=== PATIENT | female | born 1955 | race Caucasian/White ===

== ENCOUNTER 2016-11-25 21:17 | Inpatient (IN) | payer OTHER, MEDICARE ==
[~2016-11-25] VITALS: Ht 160 cm; Wt 70.3 kg
[2016-11-25 21:24] VITALS: BP 126/61; PULSE 98; RESP 16; TEMP 97.9; O2SAT 96
[2016-11-25] MEDS ORDERED: NOVORP2 SQ (21:38)
[2016-11-25] MEDS ORDERED: ZOLP10TA3 PO (21:38)
[2016-11-25] MEDS ORDERED: LANTUS2P SQ (21:38)
[2016-11-25] MEDS ORDERED: LISI20TA PO (21:38)
[2016-11-25] MEDS ORDERED: LETR2.5T PO (21:38)
[2016-11-25] MEDS ORDERED: SERO50TA PO (21:38)
[2016-11-25] MEDS ORDERED: DIAZ10TA PO (21:38)
[2016-11-25] MEDS ORDERED: ATOR1TAB18 PO (21:38)
[2016-11-25] MEDS ORDERED: METF850T PO (21:38)
[2016-11-25] MEDS ORDERED: PROZ40CA PO (21:38)
[2016-11-25] MEDS ORDERED: MAGN250T11 PO (21:38)
[2016-11-25] MEDS ORDERED: VITA100064 PO (21:38)
--- NOTE | 2016-11-25 22:24 | PD ---
HPI Chief Complaint: Suicide Ideation/Attempt Time Seen by Provider: 21:46 Travel History International Travel<30 days: No Contact w/Intl Traveler<30days: No Traveled to known affect area: No History of Present Illness HPI Patient is a 60-year-old female who comes in with her after she was acting strangely tonight. She reports that she took at her 's gun and waived around at her family, including 2 children at the house. She also reports putting a knife to her adult daughters wrist. Her took the gun and the knife away from her. Her says that she has been acting very oddly, she was getting lost, and today she locked herself in the neighbors bathroom. He reports that she took his BB gun and did put it to her head and pulled the trigger, however it was not loaded. He also corroborates the story that she put a knife to her daughter's wrist. She denies any medical complaints at this time. Her says she has been off balance and falling. She last fell a week ago and broke her glasses. She denies any headache, nausea, vomiting, chest pain, shortness of breath. She has a diagnosis of depression and follows with Dr. Paez. [facility] Past Medical History Anxiety: Yes Depression: Yes Cancer: Yes (RIGHT BREAST) High Cholesterol: Yes Chemotherapy: Yes (32 WEEKS IN [id number]) Diabetes: Yes Patient Takes Glucophage: Yes Diverticulitis: Yes GERD: Yes (INDIGESTION) Gout: Yes (?) Headaches: Yes Hypertension: Yes Insomnia: Yes Medical other: Yes (YANG'S PALSY X5) Migraines: Yes Shingles: Yes Sleep Apnea: Yes (NO CPAP USE) Thyroid Disease: Yes (HYPOTHYROIDISM) Triglycerides - High: Yes Tetanus Vaccination: > 5 Years Influenza Vaccination: No ?: Not Menopausal: Yes : 3 Para: 3 Tubal Ligation: Yes Past Surgical History Gynecologic Surgery: Yes (BILATERAL OOPHORECTOMY) Hysterectomy: Yes Mastectomy: Yes (2007 WITH LYMPH NODES) Social History Alcohol Use: No Tobacco Use: No Substance Use: No Allergies-Medications (Allergen,Severity, Reaction): Coded Allergies: Penicillins (Verified Allergy, Severe, SORES, 11/25/16) Reported Meds & Prescriptions Reported Meds & Active Scripts Active Reported Letrozole 2.5 Mg Tab 1 Tab PO DAILY Prozac (Fluoxetine HCl) 40 Mg Cap 60 Mg PO DAILY Lisinopril-Hctz 20-12.5 Mg Tab 1 Tab PO DAILY Lantus Inj (Insulin Glargine) 1,000 Unit/10 Ml Vial 55 Units SQ HS Zolpidem (Zolpidem Tartrate) 10 Mg Tab 10 Mg PO HS PRN Novolin R Inj (Insulin Human Regular) 1,000 Unit/10 Ml Vial 2-10 Units SQ TIDAC PRN IMPORTANT TO EAT A MEAL WITHIN 30-60 MINUTES OF DOSING Review of Systems Except as stated in HPI: all other systems reviewed are Neg General / Constitutional: No: Fever, Chills Eyes: No: Blurred Vision HENT: No: Headaches, Lightheadedness Cardiovascular: No: Chest Pain or Discomfort Respiratory: No: Shortness of Breath Gastrointestinal: No: Nausea, Vomiting Musculoskeletal: No: Myalgias, Edema Skin: No Rash, No Itching Neurologic: No: Weakness, Dizziness Psychiatric: Positive: Depression, Suicidal Ideations, Homicidal Ideation Physical Exam Narrative GENERAL: Awake and alert, in no acute distress. SKIN: Focused skin assessment warm/dry. HEAD: Atraumatic. Normocephalic. EYES: Pupils equal and round. No scleral icterus. Extraocular movements intact. ENT: Mucous membranes pink and moist. NECK: Trachea midline. No JVD. CARDIOVASCULAR: Regular rate and rhythm. No murmur appreciated. RESPIRATORY: No accessory muscle use. Clear to auscultation. Breath sounds equal bilaterally. GASTROINTESTINAL: Abdomen soft, non-tender, nondistended. MUSCULOSKELETAL: No obvious deformities. No clubbing. No cyanosis. No edema. NEUROLOGICAL: Awake and alert. No obvious cranial nerve deficits. Motor grossly within normal limits. Normal speech. PSYCHIATRIC: Appropriate mood and affect; insight and judgment normal. Data Data Last Documented VS Orders Orders Complete Blood Count With Diff (11/25/16 21:46) Comprehensive Metabolic Panel (11/25/16 21:46) Thyroid Stimulating Hormone (11/25/16 21:46) Urinalysis - C+S If Indicated (11/25/16 21:46) Psych Screen (11/25/16 21:46) Drug Screen, Random Urine (11/25/16 21:46) Alcohol (Ethanol) (11/25/16 21:46) Salicylates (Aspirin) (11/25/16 21:46) Tylenol (Acetaminophen) (11/25/16 21:46) Ct Brain W/O Iv Contrast(Rout) (11/25/16 ) Ceftriaxone Inj (Rocephin Inj) (11/25/16 22:45) Urine Culture (11/25/16 21:55) Sodium Chlor 0.9% 1000 Ml Inj (Ns 1000 M (11/25/16 23:00) Insulin Human Regular Inj (Novolin R Inj (11/25/16 23:00) Diet Regular Basic (11/26/16 Breakfast) Blood Glucose Goal (Criteria) (11/26/16 12:12) Hypoglycemia 70 Mg/Dl Or < (11/26/16 12:12) Notify Dr: Other (11/26/16 12:12) Dextrose 50% In [place]vin (Vial) Inj (D50w (Vi (11/26/16 12:15) Glucagon Inj (Glucagon Inj) (11/26/16 12:15) Insulin Human Reg Supp Scale (Novolin R (11/26/16 16:00) Insulin Human Regular Inj (Novolin R Inj (11/26/16 13:45) Admit Order (Ed Use Only) (11/26/16 15:54) Labs Laboratory Tests Test 11/25/16 21:55 11/25/16 22:30 Urine Collection Type VOIDED Urine Color STRAW Urine Turbidity SLIGHT Urine pH 5.5 Urine Specific [place] 1.020 Urine Protein NEG mg/dL Urine Glucose (UA) 1000 OR GREATER mg/dL Urine Ketones NEG mg/dL Urine Occult Blood TRACE Urine Nitrite POS Urine Bilirubin NEG Urine Leukocyte Esterase MOD Urine WBC INNUM /hpf Urine WBC Clumps MOD Urine Squamous Epithelial Cells >8 /hpf Urine Bacteria MANY /hpf Microscopic Urinalysis Comment CULTURE INDICATED Urine Opiates Screen NEG Urine Barbiturates Screen NEG Urine Amphetamines Screen NEG Urine Benzodiazepines Screen POS Urine Cocaine Screen NEG Urine Cannabinoids Screen NEG White Blood Count 13.3 TH/MM3 Red Blood Count 4.37 MIL/MM3 Hemoglobin 12.4 GM/DL Hematocrit 36.7 % Mean Corpuscular Volume 83.8 FL Mean Corpuscular Hemoglobin 28.3 PG Mean Corpuscular Hemoglobin Concent 33.8 % Red Cell Distribution Width 11.9 % Platelet Count 384 TH/MM3 Mean Platelet Volume 7.7 FL Neutrophils (%) (Auto) 75.1 % Lymphocytes (%) (Auto) 16.7 % Monocytes (%) (Auto) 4.8 % Eosinophils (%) (Auto) 0.6 % Basophils (%) (Auto) 2.8 % Neutrophils # (Auto) 10.0 TH/MM3 Lymphocytes # (Auto) 2.2 TH/MM3 Monocytes # (Auto) 0.6 TH/MM3 Eosinophils # (Auto) 0.1 TH/MM3 Basophils # (Auto) 0.4 TH/MM3 CBC Comment DIFF FINAL Differential Comment Blood Urea Nitrogen 23 MG/DL Creatinine 1.50 MG/DL Random Glucose 393 MG/DL Total Protein 7.6 GM/DL Albumin 3.2 GM/DL Calcium Level 9.4 MG/DL Alkaline Phosphatase 159 U/L Aspartate Amino Transf (AST/SGOT) 10 U/L Alanine Aminotransferase (ALT/SGPT) 20 U/L Total Bilirubin 0.2 MG/DL Sodium Level 129 MEQ/L Potassium Level 3.6 MEQ/L Chloride Level 94 MEQ/L Carbon Dioxide Level 28.1 MEQ/L Anion Gap 7 MEQ/L Estimat Glomerular Filtration Rate 35 ML/MIN Thyroid Stimulating Hormone 3rd Gen 2.150 uIU/ML Salicylates Level LESS THAN 1.7 MG/DL Acetaminophen Level LESS THAN 2.0 MCG/ML Ethyl Alcohol Level LESS THAN 3 MG/DL MDM Medical Decision Making Medical Screen Exam Complete: Yes Emergency Medical Condition: Yes Medical Record Reviewed: Yes Differential Diagnosis Psychosis versus intoxication versus electrolyte abnormality versus intracranial pathology Narrative Course Patient is a 60-year-old female comes in with her after bizarre behavior today. She admits to wait and get around putting a knife to her daughter's wrist. She has no medical complaints at this time. Patient placed under a Myles act. Labs show evidence of a UTI. She is given a dose of Rocephin. Blood sugar is a little elevated at 393, given IV fluids as well as insulin. Patient will be medically cleared to be seen by psychiatry. She will require continued antibiotics for her urinary tract infection, this can be oral. Patient will be transferred to [facility] for psychiatric evaluation and continued management. Diagnosis Primary Impression: Psychosis Qualified Codes: F29 - Unspecified psychosis not due to a substance or known physiological condition Additional Impression: Urinary tract infection Qualified Codes: N30.00 - Acute cystitis without hematuria Scripts Quetiapine (Quetiapine) 25 Mg Tab 50 MG PO HS for health, #30 TAB 0 Refills Prov: Tanner Abraham MD 12/01/16 Metformin (Glucophage) 850 Mg Tab 850 MG PO BIDPC for health, #60 TAB 0 Refills Prov: Tanner Abraham MD 12/01/16 Magnesium Oxide (Magnesium Oxide) 400 Mg Tab 400 MG PO HS for health, #30 TAB 0 Refills Prov: Tanner Abraham MD 12/01/16 Insulin Detemir Inj (Levemir Inj) 1,000 unit/ 10 ML Vial 45 UNITS SQ HS for health, #2 VIAL 0 Refills Do not mix with any other Insulin. Prov: Tanner Abraham MD 12/01/16 Doxycycline Hyclate (Doxycycline Hyclate) 100 Mg Cap 100 MG PO Q12H for health, #20 CAP 0 Refills Prov: Tanner Abraham MD 12/01/16 Diazepam (Valium) 10 Mg Tab 10 MG PO TID Y for ANXIETY, #30 TAB 0 Refills Prov: Tanner Abraham MD 12/01/16 Cholecalciferol (D 1000) 1,000 Unit Tab 1000 UNITS PO BID for health, #60 TAB 0 Refills Prov: Tanner Abraham MD 12/01/16 Atorvastatin (Atorvastatin) 80 Mg Tab 80 MG PO HS for health, #30 TAB 0 Refills Prov: Tanner Abraham MD 12/01/16 Condition: Katarina Rosenberg MD Nov 25, 2016 22:24
[2016-11-25 22:29] LABS: BLOOD, URINE TRACE (NEG); GLUCOSE,URINE 1000 OR GREATER mg/dL (NEG); KETONE, URINE NEG (NEG); NITRITE,URINE POS (NEG); PH, URINE 5.5 (5.0-8.5)
[2016-11-25 22:43] LABS: BASOPHIL # 0.4 TH/MM3 (0-0.2); BASOPHIL % 2.8 % (0.0-2.0); EOSINOPHIL # 0.1 TH/MM3 (0-0.4); EOSINOPHIL % 0.6 % (0.0-4.0); HEMATOCRIT 36.7 % (35.0-46.0); HEMO FLAGS DIFF FINAL; LYMPH % 16.7 % (9.0-44.0); LYMPHOCYTE # 2.2 TH/MM3 (1.0-4.8); MEAN CELL VOLUME 83.8 FL (80.0-100.0); MEAN CORPUSCULAR HEMOGLOBIN 28.3 PG (27.0-34.0); MEAN CORPUSCULAR HGB CONC 33.8 % (32.0-36.0); MONO % 4.8 % (0.0-8.0); NEUT % 75.1 % (16.0-70.0); PLATELET COUNT 384 TH/MM3 (150-450); RED BLOOD COUNT 4.37 MIL/MM3 (4.00-5.30); RED CELL DISTRIBUTION WIDTH 11.9 % (11.6-17.2); WHITE BLOOD COUNT 13.3 TH/MM3 (4.0-11.0)
[2016-11-25 22:45] LABS: METHOD OF COLLECTION VOIDED; SQUAMOUS EPITHELIAL CELL URINE >8 /hpf (0-5); URINE COLOR STRAW (YELLW/STRAW); WBC, URINE INNUM /hpf (0-5)
[2016-11-25] MEDS ORDERED: cefTRIAXone INJ 1,000 MG in SODIUM CHLORIDE 0.9% INJ 100 ML IV ONE (22:45)
[2016-11-25 22:46] LABS: BACTERIA, URINE MANY /hpf; COMMENT (UR) CULTURE INDICATED; CULTURE IF INDICATED CULTURE INDICATED
--- NOTE | 2016-11-25 22:46 | RADRPT ---
EXAM DATE/TIME: 11/25/2016 22:02 [place] COMPARISON: No previous studies available for comparison. INDICATIONS : Altered mental status. RADIATION DOSE: 59.09 CTDIvol (mGy) MEDICAL HISTORY : Diabetes mellitus type 2. Hypertension. SURGICAL HISTORY : None. ENCOUNTER: Initial ACUITY: 1 day PAIN SCALE: 0/10 LOCATION: cranial TECHNIQUE: Multiple contiguous axial images were obtained of the head. Using automated exposure control and adj ustment of the mA and/or kV according to patient size, radiation dose was kept as low as reasonably a chievable to obtain optimal diagnostic quality images. DICOM format image data is available electro nically for review and comparison. FINDINGS: CEREBRUM: There is mild atrophy. Ventricles are prominent but within the range of expected given the degree of atrophy present. No evidence of midline shift, mass lesion, hemorrhage or acute infarction. No extr a-axial fluid collections are seen. POSTERIOR FOSSA: The cerebellum and brainstem are intact. The 4th ventricle is midline. The cerebellopontine angle i s unremarkable. EXTRACRANIAL: The visualized portion of the orbits is intact. SKULL: The calvaria is intact. No evidence of skull fracture. CONCLUSION: No acute intracranial abnormality is identified. Tanner Fish MD on November 25, 2016 at 22:43 Board Certified Radiologist. This report was verified electronically.
[2016-11-25 22:51] LABS: CHLORIDE 94 MEQ/L (98-107); POTASSIUM 3.6 MEQ/L (3.5-5.1); SODIUM (NA) 129 MEQ/L (136-145)
[2016-11-25 22:54] LABS: ANION GAP 7 MEQ/L (5-15); BICARBONATE 28.1 MEQ/L (21.0-32.0)
[2016-11-25 22:55] LABS: BLOOD UREA NITROGEN 23 MG/DL (7-18)
[2016-11-25 22:57] LABS: ALT (GPT) 20 U/L (10-53); AST (GOT) 10 U/L (15-37)
[2016-11-25 22:58] LABS: GLOMERULAR FILTRATION RATE 35 ML/MIN (>89)
[2016-11-25 22:59] LABS: TOTAL BILIRUBIN ADULT 0.2 MG/DL (0.2-1.0)
[2016-11-25 23:00] LABS: ALKALINE PHOSPHATASE 159 U/L (45-117)
[2016-11-25] MEDS ORDERED: INSULIN HUMAN REGULAR 1,000 UNITS/10 ML VIAL SQ ONE (23:00)
[2016-11-25] MEDS ORDERED: SODIUM CHLOR 0.9% 1000 ML INJ 1,000 ML IV ONE (23:00)
[2016-11-25 23:08] LABS: ALCOHOL LESS THAN 3 MG/DL (0-5)
[2016-11-26 01:04] VITALS: BP 111/54
[2016-11-26 01:21] LABS: ACETAMINOPHEN LESS THAN 2.0 MCG/ML (10.0-30.0)
[2016-11-26 01:31] VITALS: BP 135/74; PULSE 85; RESP 16; TEMP 98.3; O2SAT 97
[2016-11-26 06:50] VITALS: BP 125/64; PULSE 66; RESP 16; O2SAT 96
[2016-11-26 07:34] VITALS: BP 130/75; PULSE 63; RESP 15; TEMP 97.8; O2SAT 98
[2016-11-26] MEDS ORDERED: DEXTROSE 50% IN WATER 50 ML VIAL(D50) IV PRN (12:15)
[2016-11-26] MEDS ORDERED: GLUCAGON 1 MG/ML VIAL OTHER PRN (12:15)
[2016-11-26] MEDS ORDERED: INSULIN HUMAN REGULAR 1,000 UNITS/10 ML VIAL SQ ONE (13:45)
[2016-11-26] MEDS ORDERED: NON-FORMULARY DRUG (Letrozole 1 TAB) PO SCH (16:00)
[2016-11-26] MEDS ORDERED: NON-FORMULARY DRUG (Lisinopril-Hctz 1 TAB) PO SCH (16:00)
[2016-11-26] MEDS ORDERED: ALUMINUM/MAGNESIUM/SIMETH 30 ML CUP PO PRN (16:00)
[2016-11-26] MEDS ORDERED: LORazepam 2 MG/ML VIAL IM PRN ×2 (16:00)
[2016-11-26] MEDS ORDERED: MAGNESIUM HYDROXIDE SUSP 30 ML CUP PO PRN (16:00)
[2016-11-26] MEDS ORDERED: LORazepam 0.5 MG TAB PO PRN (16:00)
--- NOTE | 2016-11-26 16:14 | HHI.HP ---
Provisional Diagnosis Admission Date Nov 26, 2016 at 15:56 [place]. Adjustment disorder with mixed disturbance of emotion and conduct. Certification of Person's Competence To Provide Express and Informed Consent I have personally examined Sharona Gusman , a person being served at [facility] on, Nov 26, 2016 16:04. Express and informed consent means consent voluntarily given in writing, by a competent person, after sufficient explanation and disclosure of the subject matter involved to enable the person to make a knowing and willful decision without any element of force, fraud, deceit, duress, or other form of constraint or coercion. This person is 18 years of age or older, is not now known to be incompetent to consent to treatment with a guardian advocate, and does not have a health care surrogate or proxy currently making medical treatment decisions. I have found this person to be one of the following: [x] Competent to provide express and informed consent, as defined above, for voluntary admission to this facility and is competent to provide express and informed consent for treatment. He/she has the consistent capacity to make well reasoned, willful, and knowing decisions concerning his or her medical or mental health treatment. The person fully and consistently understands the purpose of the admission for examination/placement and is fully capable of personally exercising all rights assured [place] [] Incompetent to provide express and informed consent to voluntary admission, and this is incompetent to provide express and informed consent to treatment. The person must be transferred to involuntary status and a petition for a guardian advocate filed with the Circuit Court. [] Refusing to provide express and informed consent to voluntary admission but is competent to provide express and informed consent for treatment. The person must be discharged or transferred to involuntary status. Form shall be completed within 24 hours of a person's arrival at the receiving facility and filed in the clinical record of each person: 1. Admitted on a voluntary basis 2. Permitted to provide express and informed consent to his/her own treatment 3. Allowed to transfer from involuntary to voluntary status 4. Prior to permitting a person to consent to his or her own treatment after having been previously found incompetent to consent to treatment. History of Present Illness Capacity: Has Capacity HPI This is a 60-year-old female brought in under a Myles act for bizarre and inappropriate behavior. Patient reportedly took out her 's gun and waved it around at her family. The Myles act also states that she put a knife to her adult daughters wrist. The reports the patient has been very bizarre lately and locked herself in the bathroom at a neighbors house. The also reports the patient took a BB gun, held it to her own head and pulled the trigger. The patient admits to these behaviors but provides an implausible or inadequate explanation as to why she did these things. She does state that her adult daughter has been living in her home for the last 4 years. In addition to the adult daughter, there is the son-in-law and 2 young children. The patient states she wants them to leave her home because they are loud, noisy and inappropriate. Patient complains about the son-in-law, who she states does not work. The patient further remarks that her does not attempt to make them leave. The patient provides an inadequate response as to why she put a knife to her daughters wrist, waved gun around her grandchildren or locked herself in the bathroom. She does state that she was trying to make appointments. Review of Systems Except as stated in HPI: all other systems reviewed are Neg Past Psych History Psychological trauma history Denied Violence risk - others (6 mos) High Violence risk - self (6 mos) High Substance Abuse History Drugs/Alcohol past 12 months Denied Past Family Social History Coded Allergies: Penicillins (Verified Allergy, Severe, SORES, 11/25/16) Reported Medications Letrozole (Letrozole) 2.5 Mg Tab, 1 TAB PO DAILY 11/25/16 Metformin (Metformin) 850 Mg Tab, 850 MG PO BIDPC for Blood Sugar Management, TAB 0 Refills With meals 11/25/16 Fluoxetine (Prozac) 40 Mg Cap, 60 MG PO DAILY, #30 CAP 0 Refills 11/25/16 Diazepam (Diazepam) 10 Mg Tab, 10 MG PO TID Y for ANXIETY, TAB 0 Refills 11/25/16 Lisinopril-Hctz (Lisinopril-Hctz) 20-12.5 Mg Tab, 1 TAB PO DAILY for Blood Pressure Management, #30 TAB 0 Refills 11/25/16 Quetiapine (Seroquel) 50 Mg Tab, 50 MG PO HS for Insomnia, #30 TAB 0 Refills 11/25/16 Insulin Glargine Inj (Lantus Inj) 1,000 Unit/10 Ml Vial, 55 UNITS SQ HS for Blood Sugar Management, VIAL 0 Refills 11/25/16 Atorvastatin (Atorvastatin) 80 Mg Tab, 80 MG PO HS for Cholesterol Management, # 30 TAB 0 Refills 11/25/16 Zolpidem (Zolpidem) 10 Mg Tab, 10 MG PO HS Y for INSOMNIA, TAB 0 Refills 11/25/16 Cholecalciferol (Vitamin D3) 1,000 Unit Tab, 1000 UNITS PO BID for Nutritional Supplement, #1 BOTTLE 0 Refills 11/25/16 Magnesium Oxide (Magnesium Oxide) 250 Mg Tab, 500 MG PO HS, TAB 0 Refills 11/25/16 Insulin Human Regular Inj (Novolin R Inj) 1,000 Unit/10 Ml Vial, 2-10 UNITS SQ TIDAC Y for Blood Sugar Management, #10 ML 0 Refills IMPORTANT TO EAT A MEAL WITHIN 30-60 MINUTES OF DOSING 11/25/16 Current Medications Medications (Trade) Dose Ordered Sig/Brain Route Start Time Stop Time Status Last Admin (D50w (Vial) Inj) 50 ml UNSCH PRN IV 11/26/16 12:15 (Glucagon Inj) 1 mg UNSCH PRN OTHER 11/26/16 12:15 (NovoLIN R SUPPLEMENTAL SCALE) 1 ACHS SLIDING SCALE SQ 11/26/16 16:00 (Ativan) 1 mg Q6H PRN PO 11/26/16 16:00 UNV (Ativan Inj) 1 mg Q6H PRN IM 11/26/16 16:00 UNV (Ativan) 0.5 mg Q12H PRN PO 11/26/16 16:00 UNV (Ativan Inj) 0.5 mg Q12H PRN IM 11/26/16 16:00 UNV (Tylenol) 650 mg Q4H PRN PO 11/26/16 16:00 UNV (Milk Of Magnesia Liq) 30 ml DAILY PRN PO 11/26/16 16:00 UNV (Mag-Al Plus Susp Liq) 30 ml Q6H PRN PO 11/26/16 16:00 UNV (Lipitor) 80 mg HS PO 11/26/16 21:00 UNV (Vitamin D3) 1,000 units BID PO 11/26/16 21:00 UNV (Valium) 10 mg TID PRN PO 11/26/16 16:00 UNV (Lantus Inj) 55 units HS SQ 11/26/16 21:00 UNV (Glucophage) 850 mg BIDPC PO 11/26/16 18:00 UNV Non-Formulary Medication 1 tab DAILY PO 11/26/16 16:00 UNV Non-Formulary Medication 1 tab DAILY PO 11/26/16 16:00 UNV Non-Formulary Medication 500 mg HS PO 11/26/16 21:00 UNV Non-Formulary Medication 50 mg HS PO 11/26/16 21:00 UNV Family History Positive for mood and anxiety symptoms. Social History Lives with her of many years. Patient does not work. Patient denies drug and alcohol abuse that states her and her daughter and son-in-law all smoke marijuana frequently around her grandchildren. Patient's Strengths (min. 2) Verbal and has access to healthcare. Physical Exam GENERAL: SKIN: Warm and dry. HEAD: Normocephalic. EYES: No scleral icterus. No injection or drainage. NECK: Supple, trachea midline. No JVD or lymphadenopathy. CARDIOVASCULAR: Regular rate and rhythm without murmurs, gallops, or rubs. RESPIRATORY: Breath sounds equal bilaterally. No accessory muscle use. GASTROINTESTINAL: Abdomen soft, non-tender, nondistended. MUSCULOSKELETAL: No cyanosis, or edema. BACK: Nontender without obvious deformity. No CVA tenderness. Vital Signs Vital Signs Date Time Temp Pulse Resp B/P (MAP) Pulse Ox O2 Delivery O2 Flow Rate FiO2 11/26/16 07:34 97.8 63 15 130/75 (93) 98 Room Air I/O 11/26/16 11/26/16 11/26/16 07:59 15:59 23:59 Intake Total 1000 ml 240 ml Balance 1000 ml 240 ml Lab Results Test 11/25/16 21:55 11/25/16 22:30 Urine Collection Type VOIDED Urine Color STRAW Urine Turbidity SLIGHT Urine pH 5.5 Urine Specific [place] 1.020 Urine Protein NEG mg/dL Urine Glucose (UA) 1000 OR GREATER mg/dL Urine Ketones NEG mg/dL Urine Occult Blood TRACE Urine Nitrite POS Urine Bilirubin NEG Urine Leukocyte Esterase MOD Urine WBC INNUM /hpf Urine WBC Clumps MOD Urine Squamous Epithelial Cells >8 /hpf Urine Bacteria MANY /hpf Microscopic Urinalysis Comment CULTURE INDICATED Urine Opiates Screen NEG Urine Barbiturates Screen NEG Urine Amphetamines Screen NEG Urine Benzodiazepines Screen POS Urine Cocaine Screen NEG Urine Cannabinoids Screen NEG White Blood Count 13.3 TH/MM3 Red Blood Count 4.37 MIL/MM3 Hemoglobin 12.4 GM/DL Hematocrit 36.7 % Mean Corpuscular Volume 83.8 FL Mean Corpuscular Hemoglobin 28.3 PG Mean Corpuscular Hemoglobin Concent 33.8 % Red Cell Distribution Width 11.9 % Platelet Count 384 TH/MM3 Mean Platelet Volume 7.7 FL Neutrophils (%) (Auto) 75.1 % Lymphocytes (%) (Auto) 16.7 % Monocytes (%) (Auto) 4.8 % Eosinophils (%) (Auto) 0.6 % Basophils (%) (Auto) 2.8 % Neutrophils # (Auto) 10.0 TH/MM3 Lymphocytes # (Auto) 2.2 TH/MM3 Monocytes # (Auto) 0.6 TH/MM3 Eosinophils # (Auto) 0.1 TH/MM3 Basophils # (Auto) 0.4 TH/MM3 CBC Comment DIFF FINAL Differential Comment Blood Urea Nitrogen 23 MG/DL Creatinine 1.50 MG/DL Random Glucose 393 MG/DL Total Protein 7.6 GM/DL Albumin 3.2 GM/DL Calcium Level 9.4 MG/DL Alkaline Phosphatase 159 U/L Aspartate Amino Transf (AST/SGOT) 10 U/L Alanine Aminotransferase (ALT/SGPT) 20 U/L Total Bilirubin 0.2 MG/DL Sodium Level 129 MEQ/L Potassium Level 3.6 MEQ/L Chloride Level 94 MEQ/L Carbon Dioxide Level 28.1 MEQ/L Anion Gap 7 MEQ/L Estimat Glomerular Filtration Rate 35 ML/MIN Thyroid Stimulating Hormone 3rd Gen 2.150 uIU/ML Salicylates Level LESS THAN 1.7 MG/DL Acetaminophen Level LESS THAN 2.0 MCG/ML Ethyl Alcohol Level LESS THAN 3 MG/DL Date/Time Source Procedure Growth Status 11/25/16 21:55 Urine Random Urine Urine Culture - Preliminary Gram Negative [place] Resulted Mental Status Examination Speech: Unremarkable Orientation: x3 Memory: Unremarkable Thought Process: Circumstantial, Tangential Thought Content: Bizarre thinking Hallucination Type: None Attention and Concentration: Good Suicidal Ideation: Yes Previous Suicide Attempts: No Homicidal Ideation: Yes Previous Homicide Attempts: No Insight: Fair Judgment: Unrealistic Affect: Anxious, Sad Mood: Sad, Anxious Motor Activity: Normal gait Assessment & Plan Problem List: (1) Adjustment disorder with mixed disturbance of emotions and conduct ICD Codes: F43.25 - Adjustment disorder with mixed disturbance of emotions and conduct Assessment & Plan Estimated LOS: days. This is a 60-year-old female being admitted under a Myles act for dangerous behavior to self and others. By waving her 's gun in front of her family members and grandchildren, she is certainly engaged in dangerous behavior. By holding a BB gun to her head and pulling the trigger , she is obviously engaging in behavior dangerous to herself. Finally, by placing a knife to her daughter's wrist, she is endangering the welfare of her daughter. For these reasons the patient is being admitted for evaluation and treatment. The patient will undergo a number of tests including a CBC and metabolic profile. This is to determine if a infectious or metabolic process is causing or contributing to the patient's bizarre behavior. It is noted the patient has multiple medical problems including diabetes and therefore the physical medicine physician is being consulted to evaluate and treat. The patient is also having vitamin B-12, vitamin D and thyroid stimulating hormone levels checked to determine if deficiencies in these areas are causing or contributing to her bizarre behavior. We will obtain an EKG to determine the patient's cardiac conduction status in order to protect her against possible adverse effects from psychotropic medication use. This physician spoke with the patient 's nurse regarding her recent bizarre behavior, which is confirmed by her . Case management is also being involved to obtain further information from family members and assist with disposition planning. Rafael Orellana MD Nov 26, 2016 16:14
[2016-11-26 16:17] VITALS: BP 134/83; PULSE 70; RESP 15; TEMP 98; O2SAT 98
[2016-11-26] MEDS: INSULIN NovoLIN REGULAR SUPPLEMENTAL SCALE SQ SCH ×2 (16:48→20:47)
[2016-11-26 17:25] VITALS: BP 132/77; PULSE 78; RESP 16; TEMP 97.8
[2016-11-26] MEDS ORDERED: metFORMIN HCL 850 MG TAB PO SCH (18:00)
[2016-11-26] MEDS: CHOLECALCIFEROL (VIT D3) 1000 UNIT TAB PO SCH (20:34)
[2016-11-26] MEDS: ATORVASTATIN 80 MG TAB PO SCH (20:34)
[2016-11-26] MEDS: INSULIN DETEMIR 100 UNITS/ML VIAL SQ SCH (20:44)
[2016-11-26] MEDS: LORazepam 1 MG TAB PO PRN (20:48)
[2016-11-26] MEDS ORDERED: NON-FORMULARY DRUG (Magnesium Oxide 500 MG) PO SCH (21:00)
[2016-11-26] MEDS ORDERED: NON-FORMULARY DRUG (Quetiapine (Seroquel) 50 MG) PO SCH (21:00)
[2016-11-26] MEDS ORDERED: INSULIN GLARGINE 1,000 UNITS/10 ML VIAL SQ SCH (21:00)
[2016-11-26] MEDS ORDERED: PILL SPLITTER OTHER PRN (21:30)
[2016-11-26] MEDS: ACETAMINOPHEN 325 MG TAB PO PRN (21:43)
[2016-11-26] MEDS: DIAZEPAM 10 MG TAB PO PRN (23:16)
[2016-11-27] MEDS: ACETAMINOPHEN 325 MG TAB PO PRN (04:54)
[2016-11-27 06:03] VITALS: BP 178/85; PULSE 78; RESP 17; TEMP 97.9; O2SAT 98
[2016-11-27] MEDS: INSULIN NovoLIN REGULAR SUPPLEMENTAL SCALE SQ SCH ×4 (06:29→21:00)
[2016-11-27] MEDS: CHOLECALCIFEROL (VIT D3) 1000 UNIT TAB PO SCH ×2 (09:00→21:22)
[2016-11-27] MEDS: HYDROCHLOROTHIAZIDE 25 MG TAB PO SCH (09:00)
[2016-11-27] MEDS ORDERED: PT:LETROZOLE 2.5 MG PO SCH (09:00)
[2016-11-27] MEDS: LISINOPRIL 20 MG TAB PO SCH (09:00)
[2016-11-27 09:40] LABS: AUTOMATED NEUTROPHIL # 9.1 TH/MM3 (1.8-7.7); BASOPHIL # 0.1 TH/MM3 (0-0.2); BASOPHIL % 0.5 % (0.0-2.0); EOSINOPHIL # 0.1 TH/MM3 (0-0.4); EOSINOPHIL % 1.2 % (0.0-4.0); HEMATOCRIT 38.4 % (35.0-46.0); HEMO FLAGS DIFF FINAL; LYMPH % 18.7 % (9.0-44.0); LYMPHOCYTE # 2.3 TH/MM3 (1.0-4.8); MEAN CORPUSCULAR HEMOGLOBIN 28.5 PG (27.0-34.0); MEAN CORPUSCULAR HGB CONC 33.5 % (32.0-36.0); MONO % 4.6 % (0.0-8.0); PLATELET COUNT 403 TH/MM3 (150-450); RED BLOOD COUNT 4.52 MIL/MM3 (4.00-5.30); RED CELL DISTRIBUTION WIDTH 13.3 % (11.6-17.2); WHITE BLOOD COUNT 12.1 TH/MM3 (4.0-11.0)
[2016-11-27 10:06] LABS: ANION GAP 7 MEQ/L (5-15); AST (GOT) 13 U/L (15-37); BLOOD UREA NITROGEN 12 MG/DL (7-18); CHLORIDE 104 MEQ/L (98-107); GLOMERULAR FILTRATION RATE 54 ML/MIN (>89); POTASSIUM 3.4 MEQ/L (3.5-5.1); SODIUM (NA) 139 MEQ/L (136-145)
[2016-11-27 10:36] LABS: ALKALINE PHOSPHATASE 151 U/L (45-117); ALT (GPT) 22 U/L (10-53); HDL CHOLESTEROL 35.3 MG/DL (40.0-60.0); LDL CHOLESTEROL 167 MG/DL (0-99); TOTAL BILIRUBIN ADULT 0.3 MG/DL (0.2-1.0)
[2016-11-27] MEDS ORDERED: ALUMINUM/MAGNESIUM/SIMETH 30 ML CUP PO PRN (11:00)
[2016-11-27] MEDS ORDERED: hydrOXYzine HCL 50 MG TAB PO PRN (11:00)
[2016-11-27] MEDS ORDERED: MAGNESIUM HYDROXIDE SUSP 30 ML CUP PO PRN (11:00)
[2016-11-27] MEDS ORDERED: diphenhydrAMINE HCL 50 MG CAP PO PRN (11:00)
--- NOTE | 2016-11-27 11:13 | EKG ---
Date Performed: 11/27/2016 Time Performed: 09:13:01 PTAGE: 60 years EKG: Sinus rhythm ST/T-WAVE ABNORMALITY, CONSIDER ANTERIOR ISCHEMIA ABNORMAL ECG NO PREVIOUS TRACING DOCTOR: Gene Hogue Interpretating Date/Time 11/27/2016 11:11:25
[2016-11-27] MEDS ORDERED: POTASSIUM CHLORIDE 25 MEQ EFFERVESCENT TAB PO ONE (11:15)
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
[2016-11-27 12:15] LABS: HEMOGLOBIN A1a 1.2 %; HEMOGLOBIN A1b 1.3 %; HEMOGLOBIN Ao 73.5 %; HEMOGLOBIN F 1.9 %; HEMOGLOBIN P3 4.5 %
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
[2016-11-27] MEDS: SULFAMETHOXAZOLE-TRIMETHOPRIM DS 800-160 MG TAB PO SCH ×2 (13:44→21:21)
[2016-11-27 14:53] LABS: BLOOD GAS BASE EXCESS 1.1 mmol/L (-2-2); BLOOD GAS CARBOXYHEMOGLOBIN 1.4 % (0-4); BLOOD GAS HCO3 26 mmol/L (22-26); BLOOD GAS O2 HGB SATURATION 94 % (90-100); BLOOD GAS OXYGEN CONTENT 20.1 Vol % (12.0-20.0); BLOOD GAS PCO2 48 mmHg (38-42); BLOOD GAS PO2 86 mmHg (61-120); BLOOD GAS TOTAL HGB 15.3 G/DL (12.0-16.0); TEMP CORR TO 98.6
[2016-11-27 14:54] LABS: CRITICAL VALUE NO; DRAW SITE LT RADIAL; FIO2 21 %; NUMBER OF ARTERIAL PUNCTURES 1; OXYGEN DEVICE ROOM AIR; STAT NO; ULNAR PULSE PRESENT
--- NOTE | 2016-11-27 15:58 | RADRPT ---
EXAM DATE/TIME: 11/27/2016 15:35 [place] COMPARISON: No previous studies available for comparison. INDICATIONS : Pneumonia. MEDICAL HISTORY : Hypertension. Diabetes mellitus type II. SURGICAL HISTORY : right breast surgery. ENCOUNTER: Initial ACUITY: 2 days PAIN SCORE: Non-responsive. LOCATION: Bilateral chest FINDINGS: Airspace disease in the right lower lung zone. Cardiomediastinal contours are within normal limits. B gurmeet thorax is intact. CONCLUSION: 1. Right lower lung zone airspace disease concerning for developing pneumonia in the appropriate clin ical setting. Consider formal PA and lateral views of the chest for better evaluation. Shun Randhawa MD on November 27, 2016 at 15:55 Board Certified Radiologist. This report was verified electronically.
[2016-11-27 18:57] VITALS: BP 132/72; PULSE 95; RESP 17; TEMP 97.3; O2SAT 99
[2016-11-27] MEDS: QUEtiapine FUMARATE 25 MG TAB PO SCH (21:00)
[2016-11-27] MEDS: INSULIN DETEMIR 100 UNITS/ML VIAL SQ SCH (21:00)
[2016-11-27] MEDS: MAGNESIUM OXIDE 400 MG TAB PO SCH (21:21)
[2016-11-27] MEDS: ATORVASTATIN 80 MG TAB PO SCH (21:21)
[2016-11-27 23:20] VITALS: BP 127/69; PULSE 69; RESP 13; O2SAT 97
[2016-11-28 05:46] VITALS: BP 179/72; PULSE 82; RESP 17; TEMP 97.9; O2SAT 95
[2016-11-28] MEDS: INSULIN NovoLIN REGULAR SUPPLEMENTAL SCALE SQ SCH ×4 (06:42→21:00)
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
[2016-11-28] MEDS: CHOLECALCIFEROL (VIT D3) 1000 UNIT TAB PO SCH ×2 (09:00→21:00)
[2016-11-28] MEDS: SULFAMETHOXAZOLE-TRIMETHOPRIM DS 800-160 MG TAB PO SCH ×2 (09:10→21:04)
[2016-11-28] MEDS: LISINOPRIL 20 MG TAB PO SCH (09:11)
[2016-11-28 10:16] LABS: HEMATOCRIT 39.3 % (35.0-46.0); MEAN CORPUSCULAR HEMOGLOBIN 28.2 PG (27.0-34.0); MEAN CORPUSCULAR HGB CONC 32.4 % (32.0-36.0); PLATELET COUNT 399 TH/MM3 (150-450); RED BLOOD COUNT 4.52 MIL/MM3 (4.00-5.30); RED CELL DISTRIBUTION WIDTH 13.2 % (11.6-17.2); REVIEW FLAG FINAL; WHITE BLOOD COUNT 12.2 TH/MM3 (4.0-11.0)
[2016-11-28 11:17] LABS: BICARBONATE 27.2 MEQ/L (21.0-32.0); MAGNESIUM 1.8 MG/DL (1.5-2.5); POTASSIUM 3.7 MEQ/L (3.5-5.1)
--- NOTE | 2016-11-28 15:57 | HHI.PYPN ---
Subjective Remarks Patient seen in her room with nurse Diana, chart reviewed, patient compliant medication. Patient still showing somewhat sad mood with vague delusional ideation now staying that she is seeing things but not hearing things. For now continue treatment Review of Systems Except as stated in HPI: all other systems reviewed are Neg Objective Alert: Yes [place]: Person, Place Mood: Anxious, Calm, Depressed Affect: Other (slight decreased range and intensity) Memory Intact: Comment (poor to fair) Hallucinations: Other (denies) Delusions: No Delusion Type: Paranoid (some paranoid thinking as daughter and living situation) Suicidal: Ideation (denies) Homicidal: Ideation (denies though made threatening gestures towards her family ) Insight/Judgment Very poor Labs Test 11/28/16 09:51 White Blood Count 12.2 TH/MM3 Red Blood Count 4.52 MIL/MM3 Hemoglobin 12.7 GM/DL Hematocrit 39.3 % Mean Corpuscular Volume 87.0 FL Mean Corpuscular Hemoglobin 28.2 PG Mean Corpuscular Hemoglobin Concent 32.4 % Red Cell Distribution Width 13.2 % Platelet Count 399 TH/MM3 Mean Platelet Volume 7.4 FL Blood Urea Nitrogen 20 MG/DL Creatinine 1.29 MG/DL Random Glucose 303 MG/DL Calcium Level 9.3 MG/DL Magnesium Level 1.8 MG/DL Sodium Level 137 MEQ/L Potassium Level 3.7 MEQ/L Chloride Level 102 MEQ/L Carbon Dioxide Level 27.2 MEQ/L Anion Gap 8 MEQ/L Estimat Glomerular Filtration Rate 42 ML/MIN Ammonia 18 MCMOL/L Date/Time Source Procedure Growth Status 11/25/16 21:55 Urine Random Urine Urine Culture - Final Escherichia Coli Complete Vitals/IOs Vital Signs Date Time Temp Pulse Resp B/P (MAP) Pulse Ox O2 Delivery O2 Flow Rate FiO2 11/28/16 05:46 97.9 82 17 179/72 (107) 95 11/26/16 16:17 Nasal Cannula Assessment & Plan Problem List: (1) Adjustment disorder with mixed disturbance of emotions and conduct ICD Codes: F43.25 - Adjustment disorder with mixed disturbance of emotions and conduct Assessment & Plan Estimated LOS: days patient continue psychotic, though no behavioral problems, compliant medications Justification for Cont. Inpt. This time patient will decompensate the placed in the lower level of care Discharge Planning To be determined Tanner Abraham MD Nov 28, 2016 15:57
[2016-11-28 17:55] VITALS: BP 127/63; PULSE 97; RESP 17; TEMP 98.4; O2SAT 98
[2016-11-28] MEDS: QUEtiapine FUMARATE 25 MG TAB PO SCH (21:03)
[2016-11-28] MEDS: MAGNESIUM OXIDE 400 MG TAB PO SCH (21:04)
[2016-11-28] MEDS: ATORVASTATIN 80 MG TAB PO SCH (21:04)
[2016-11-28] MEDS: INSULIN DETEMIR 100 UNITS/ML VIAL SQ SCH (22:02)
[2016-11-29] MEDS: LORazepam 1 MG TAB PO PRN (00:39)
[2016-11-29] MEDS: INSULIN NovoLIN REGULAR SUPPLEMENTAL SCALE SQ SCH ×4 (05:57→20:53)
[2016-11-29 06:11] VITALS: BP 90/55; PULSE 64; RESP 16; TEMP 97.4; O2SAT 96
[2016-11-29] MEDS: LISINOPRIL 20 MG TAB PO SCH (08:54)
[2016-11-29] MEDS: SULFAMETHOXAZOLE-TRIMETHOPRIM DS 800-160 MG TAB PO SCH ×2 (08:55→20:55)
[2016-11-29] MEDS: CHOLECALCIFEROL (VIT D3) 1000 UNIT TAB PO SCH ×2 (08:55→20:55)
[2016-11-29] MEDS: HYDROCHLOROTHIAZIDE 25 MG TAB PO SCH (09:00)
[2016-11-29] MEDS: DIAZEPAM 10 MG TAB PO PRN ×2 (09:03→20:55)
--- NOTE | 2016-11-29 13:42 | HHI.PYPN ---
Subjective Remarks Pt seen and discussed with staff. She remains disorganized but denies AVH today. No SI/HI, but reports mood as "sad". No behavioral problems on unit. Objective Alert: Yes [place]: Person, Place Mood: Depressed Affect: Flat Memory Intact: Comment (poor to fair) Hallucinations: Other (appears internally stimulated) Delusions: No Delusion Type: Paranoid Suicidal: Ideation (denies) Homicidal: Ideation (denies though made threatening gestures towards her family ) Insight/Judgment poor Labs Date/Time Source Procedure Growth Status 11/25/16 21:55 Urine Random Urine Urine Culture - Final Escherichia Coli Complete Vitals/IOs Vital Signs Date Time Temp Pulse Resp B/P (MAP) Pulse Ox O2 Delivery O2 Flow Rate FiO2 11/29/16 06:11 97.4 64 16 90/55 (67) 96 11/26/16 16:17 Nasal Cannula Assessment & Plan Problem List: (1) Adjustment disorder with mixed disturbance of emotions and conduct ICD Codes: F43.25 - Adjustment disorder with mixed disturbance of emotions and conduct (2) Psychosis ICD Codes: F29 - Unspecified psychosis not due to a substance or known physiological condition Status: Acute Assessment & Plan Titrate seroquel to target psychosis. Estimated LOS: days Justification for Cont. Inpt. impairments in psychosis Problem Qualifiers (1) Psychosis: Qualified Codes: F28 - Other psychotic disorder not due to a substance or known physiological condition Vanesa Walker MD Nov 29, 2016 13:41
[2016-11-29] MEDS: ACETAMINOPHEN 325 MG TAB PO PRN (14:59)
[2016-11-29 17:55] VITALS: BP 131/76; PULSE 93; RESP 16; TEMP 97.5; O2SAT 97
[2016-11-29] MEDS: INSULIN DETEMIR 100 UNITS/ML VIAL SQ SCH (20:53)
[2016-11-29] MEDS: QUEtiapine FUMARATE 25 MG TAB PO SCH (20:55)
[2016-11-29] MEDS: MAGNESIUM OXIDE 400 MG TAB PO SCH (20:55)
[2016-11-29] MEDS: ATORVASTATIN 80 MG TAB PO SCH (20:55)
[2016-11-30 05:27] VITALS: BP 94/53; PULSE 70; RESP 17; TEMP 98; O2SAT 96
[2016-11-30] MEDS: INSULIN NovoLIN REGULAR SUPPLEMENTAL SCALE SQ SCH ×4 (06:58→21:00)
[2016-11-30] MEDS: LISINOPRIL 20 MG TAB PO SCH (08:52)
[2016-11-30] MEDS: CHOLECALCIFEROL (VIT D3) 1000 UNIT TAB PO SCH ×2 (08:52→21:46)
[2016-11-30] MEDS: SULFAMETHOXAZOLE-TRIMETHOPRIM DS 800-160 MG TAB PO SCH (08:52)
[2016-11-30] MEDS: HYDROCHLOROTHIAZIDE 25 MG TAB PO SCH (08:53)
[2016-11-30] MEDS: DIAZEPAM 10 MG TAB PO PRN ×2 (11:54→22:04)
--- NOTE | 2016-11-30 16:12 | HHI.PR ---
Subjective Remarks The patient said that she was worried about her living situation at home. She said she was recently hospitalized for a UTI. She denies any urinary symptoms. Objective Vitals Vital Signs Date Time Temp Pulse Resp B/P (MAP) Pulse Ox O2 Delivery O2 Flow Rate FiO2 11/30/16 05:27 98.0 70 17 94/53 (67) 96 11/29/16 17:55 97.5 93 16 131/76 (94) 97 Result Diagram: 11/28/16 0951 11/28/16 0951 Imaging Last Impressions Chest X-Ray 11/27/16 0000 Signed Impressions: Service Date/Time: November 15:35 - CONCLUSION: 1. Right lower lung zone airspace disease concerning for developing pneumonia in the appropriate clinical setting. Consider formal PA and lateral views of the chest for better evaluation. Shun Randhawa MD Head CT 11/25/16 0000 Signed Impressions: Service Date/Time: Friday, November 25, 2016 22:02 - CONCLUSION: No acute intracranial abnormality is identified. Tanner Fish MD Objective Remarks GENERAL: Resting comfortably. SKIN: Focused skin assessment warm/dry. HEAD: Atraumatic. Normocephalic. EYES: Pupils equal and round. No scleral icterus. Extraocular movements intact. ENT: Mucous membranes pink and moist. NECK: Trachea midline. No JVD. CARDIOVASCULAR: Regular rate and rhythm. No murmur appreciated. RESPIRATORY: No accessory muscle use. Clear to auscultation. Breath sounds equal bilaterally. GASTROINTESTINAL: Abdomen soft, non-tender, nondistended. MUSCULOSKELETAL: No obvious deformities. No clubbing. No cyanosis. No edema. NEUROLOGICAL: No obvious cranial nerve deficits. Motor grossly within normal limits. PSYCHIATRIC: Calm. Medications and IVs Current Medications Medications (Trade) Dose Ordered Sig/Brain Route Start Time Stop Time Status Last Admin (D50w (Vial) Inj) 50 ml UNSCH PRN IV 11/26/16 12:15 (Glucagon Inj) 1 mg UNSCH PRN OTHER 11/26/16 12:15 (NovoLIN R SUPPLEMENTAL SCALE) 1 ACHS SLIDING SCALE SQ 11/26/16 16:00 11/30/16 11:38 (Ativan) 1 mg Q6H PRN PO 11/26/16 16:00 11/29/16 00:39 (Ativan Inj) 1 mg Q6H PRN IM 11/26/16 16:00 (Lipitor) 80 mg HS PO 11/26/16 21:00 11/29/16 20:55 (Vitamin D3) 1,000 units BID PO 11/26/16 21:00 11/30/16 08:52 (Valium) 10 mg TID PRN PO 11/26/16 16:00 11/30/16 11:54 (Glucophage) 850 mg BIDPC PO 11/26/16 18:00 Future Hold 11/28/16 09:11 Patient Own Medication PT OWN MED: LETROZ... DAILY PO 11/27/16 09:00 Future Hold (SEROquel) 50 mg HS PO 11/27/16 21:00 11/29/16 20:55 (Mag-Ox) 400 mg HS PO 11/27/16 21:00 11/29/16 20:55 (Pill Splitter) 1 ea UNSCH PRN OTHER 11/26/16 21:30 (Benadryl) 50 mg HS PRN PO 11/27/16 11:00 (Tylenol) 650 mg Q4H PRN PO 11/27/16 11:00 11/29/16 14:59 (Milk Of Magnesia Liq) 30 ml DAILY PRN PO 11/27/16 11:00 11/29/16 18:57 (Mag-Al Plus Susp Liq) 30 ml Q6H PRN PO 11/27/16 11:00 (Atarax) 50 mg Q6H PRN PO 11/27/16 11:00 11/29/16 20:55 (Bactrim Ds 800-160 Mg) 1 tab Q12HR PO 11/27/16 11:45 11/30/16 08:52 (Levemir Inj) 45 units HS SQ 11/30/16 21:00 A/P Assessment and Plan Psychosis/ Encephalopathy The pt displayed bizarre behavior prior to admission. Now lethargic, possibly s/ t Valium and Ativan. Possibly exacerbated by UTI. Resolved. - management per psychiatry. - continue Bactrim. - foster care case manager consult. UTI UA indicative of infection. E coli grew in urine culture. - treat with doxycycline. Leukocytosis Likely s/t UTI. Afebrile. CXR concerning for PNA. - start doxycycline. - CXR PA/ lateral pending. Hypokalemia Potassium was 3.4. S/t HCTZ. - replete and monitor. Acute renal insufficiency Likely prerenal s/t diuretic usage. - hold HCTZ, lisinopril and monitor. Hyperlipidemia LDL is 167. - continue home statin. HTN Blood pressure well controlled at this time. - continue home meds but hold HCTZ and lisinopril as above. - clonidine as needed. DM Glucose well controlled. On metformin and insulin as an outpt. - continue home regimen of insulin at a lower dose. - insulin sliding scale. - hold metformin. PPx: Ambulation Mark Cordova DO Nov 30, 2016 16:12
[2016-11-30 16:24] VITALS: BP 143/95; PULSE 93; RESP 18; TEMP 98.4
--- NOTE | 2016-11-30 16:52 | HHI.PYPN ---
Subjective Remarks Pt seen and discussed with staff. She has cooperative with care.She has been out of her room and participating in unit activities. No bizarre behavior today. She reports that she is feeling better today and anxiety and mood are improving. She reports that she had been taking "a lot of ambien to sleep" at home prior to hospitalization and was having hallucinations of relatives sitting on her couch. She reports that thoughts feel more clear today. No SI/HI Objective Alert: Yes [place]: Person, Place, Date Mood: Depressed Affect: Restricted (more reactive) Memory Intact: Comment (improved) Hallucinations: Other (none) Delusions: No Delusion Type: Paranoid (decreased) Suicidal: Ideation (denies) Homicidal: Ideation (denies though made threatening gestures towards her family ) Insight/Judgment limited but improving Labs Date/Time Source Procedure Growth Status 11/25/16 21:55 Urine Random Urine Urine Culture - Final Escherichia Coli Complete Vitals/IOs Vital Signs Date Time Temp Pulse Resp B/P (MAP) Pulse Ox O2 Delivery O2 Flow Rate FiO2 11/30/16 16:24 98.4 93 18 143/95 (111) 11/30/16 05:27 96 11/26/16 16:17 Nasal Cannula Assessment & Plan Problem List: (1) Adjustment disorder with mixed disturbance of emotions and conduct ICD Codes: F43.25 - Adjustment disorder with mixed disturbance of emotions and conduct (2) Psychosis ICD Codes: F29 - Unspecified psychosis not due to a substance or known physiological condition Status: Acute Assessment & Plan Pt improving. psychosis may have been substance induced. Continue current tx plan. Estimated LOS: days Justification for Cont. Inpt. risk of decompensation Problem Qualifiers (1) Psychosis: Qualified Codes: F28 - Other psychotic disorder not due to a substance or known physiological condition Vanesa Walker MD Nov 30, 2016 16:52
[2016-11-30] MEDS ORDERED: DOXYCYCLINE HYCLATE 100 MG TAB PO SCH (17:00)
[2016-11-30] MEDS ORDERED: POLYETHYLENE GLYCOL 17 GM PKG PO ONE (17:00)
[2016-11-30] MEDS: DOXYCYCLINE HYCLATE 100 MG CAP PO SCH (18:12)
[2016-11-30] MEDS: ACETAMINOPHEN 325 MG TAB PO PRN (20:03)
[2016-11-30] MEDS ORDERED: INSULIN DETEMIR 100 UNITS/ML VIAL SQ SCH (21:00)
--- NOTE | 2016-11-30 21:14 | RADRPT ---
EXAM DATE/TIME: 11/30/2016 20:12 [facility] COMPARISON: CHEST SINGLE AP, November 27, 2016, 15:35. INDICATIONS : Short of Breath MEDICAL HISTORY : Hypertension. Diabetes mellitus type II. SURGICAL HISTORY : Right breast surgery. ENCOUNTER: Subsequent ACUITY: 3 days PAIN SCORE: 0/10 LOCATION: Bilateral chest FINDINGS: There is focal patchy density within what appears to be the right middle lobe medially. Clinical cor relation is recommended to rule out focal pneumonia. The left lung is clear. The heart is normal. CONCLUSION: Minimal focal patchiness within the medial right lung base consistent with possible right middle lobe pneumonia. Clinical correlation is recommended. Chapin Wilson MD on November 30, 2016 at 20:52 Board Certified Radiologist. This report was verified electronically.
[2016-11-30] MEDS: MAGNESIUM OXIDE 400 MG TAB PO SCH (21:44)
[2016-11-30] MEDS: ATORVASTATIN 80 MG TAB PO SCH (21:46)
[2016-11-30] MEDS: QUEtiapine FUMARATE 25 MG TAB PO SCH (21:46)
[2016-12-01] MEDS: LORazepam 1 MG TAB PO PRN (00:48)
[2016-12-01 06:08] VITALS: BP 118/58; PULSE 71; RESP 18; TEMP 98.3
[2016-12-01] MEDS: DOXYCYCLINE HYCLATE 100 MG CAP PO SCH ×2 (06:34→17:08)
[2016-12-01] MEDS: INSULIN NovoLIN REGULAR SUPPLEMENTAL SCALE SQ SCH ×3 (06:53→16:02)
[2016-12-01 08:13] LABS: HEMATOCRIT 36.6 % (35.0-46.0); MEAN CELL VOLUME 86.5 FL (80.0-100.0); MEAN CORPUSCULAR HEMOGLOBIN 27.9 PG (27.0-34.0); MEAN CORPUSCULAR HGB CONC 32.2 % (32.0-36.0); PLATELET COUNT 404 TH/MM3 (150-450); RED BLOOD COUNT 4.23 MIL/MM3 (4.00-5.30); RED CELL DISTRIBUTION WIDTH 13.4 % (11.6-17.2); REVIEW FLAG FINAL
[2016-12-01 08:49] LABS: BICARBONATE 30.1 MEQ/L (21.0-32.0)
[2016-12-01] MEDS: CHOLECALCIFEROL (VIT D3) 1000 UNIT TAB PO SCH (09:33)
[2016-12-01] MEDS: DIAZEPAM 10 MG TAB PO PRN (10:13)
[2016-12-01] MEDS: ACETAMINOPHEN 325 MG TAB PO PRN (13:11)
[2016-12-01] MEDS ORDERED: ATOR1TAB18 PO (15:17)
[2016-12-01] MEDS ORDERED: VITA1000 PO (15:17)
[2016-12-01] MEDS ORDERED: QUET1TAB7 PO (15:17)
[2016-12-01] MEDS ORDERED: MAGN400T3 PO (15:17)
[2016-12-01] MEDS ORDERED: METF850 PO (15:17)
[2016-12-01] MEDS ORDERED: DIAZ10 PO (15:17)
[2016-12-01] MEDS ORDERED: LEVEMIR SQ (15:17)
[2016-12-01] MEDS ORDERED: DOXY100C PO (15:17)
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
== END 2016-12-01 17:25 | disposition home or self-care (01) | DRG 882 ==
LOC: PHED 21:17 → NEDA 11-26 15:56 → H260 11-26 16:32
PROVIDERS: ADMIT Psychiatry & Neurology Psychiatry; ATTEND Psychiatry & Neurology Psychiatry
DX: F43.25 Adjustment disorder with mixed disturbance of emotions and conduct (principal); I10 Essential (primary) hypertension; F13.951 Sedative, hypnotic or anxiolytic use, unspecified with sedative, hypnotic or anxiolytic-induced psychotic disorder with hallucinations; N39.0 Urinary tract infection, site not specified; B96.20 Unspecified Escherichia coli [E. coli] as the cause of diseases classified elsewhere; N28.9 Disorder of kidney and ureter, unspecified; E11.9 Type 2 diabetes mellitus without complications; Z79.4 Long term (current) use of insulin; Z79.84 Long term (current) use of oral hypoglycemic drugs; E78.5 Hyperlipidemia, unspecified; E87.6 Hypokalemia; Z87.440 Personal history of urinary (tract) infections; Z92.21 Personal history of antineoplastic chemotherapy; Z85.3 Personal history of malignant neoplasm of breast
CPT/HCPCS: 36600; 70450; 71010; 71020; 80048; 80053; 80061; 80307; 81001; 82140; 82306; 82607; 82805; 82948; 83036; 83735; 84443; 85025; 85027; 87077; 87086; 87186; 93005; 96361; 96365; 96372; J0696; J1815; J7030; Q0163

== ENCOUNTER 2017-04-18 16:37 | Inpatient (IN) | payer OTHER, MEDICARE ==
[~2017-04-18] VITALS: Ht 162.6 cm; Wt 68.9 kg
[~2017-04-18 16:37] MED LIST: ATOR80TA45 PO; DIAZ10 PO; DOXY100C PO; LANTUS2P SQ; LETR2.5T PO; LEVEMIR SQ; LISI20TA PO; MAGN400T3 PO; METF850 PO; NOVORP2 SQ; PROZ40CA PO; QUET1TAB7 PO; VITA1000 PO; ZOLP10TA3 PO
[2017-04-18 16:57] VITALS: BP 119/80; PULSE 99; RESP 18; TEMP 97.5; O2SAT 99
--- NOTE | 2017-04-18 17:21 | PD ---
HPI Chief Complaint: Psychiatric Symptoms Time Seen by Provider: 17:06 Travel History International Travel<30 days: No Contact w/Intl Traveler<30days: No Traveled to known affect area: No History of Present Illness HPI 61-year-old female presents to the emergency Department under [place] act by local police for psychiatric evaluation. According the Myles act, the patient has been sad and depressed is been off her antidepressants for 30 days. The patient states that she does not have a car and does not have many friends. Her has not under leave the house and she was feeling sad and depressed so she called 911 for help. Patient denies any suicidal ideations to me. She thinks she may have a urinary tract infection. She denies any other complaints at this time. Patient is alert and oriented to person, place, time, situation. She denies any alcohol, tobacco, drug use. [id number] severity. PFSH Past Medical History Anxiety: Yes Depression: Yes Cancer: Yes (RIGHT BREAST) High Cholesterol: Yes Chemotherapy: Yes (32 WEEKS IN [id number]) Diabetes: Yes Patient Takes Glucophage: No Diverticulitis: Yes GERD: Yes (INDIGESTION) Gout: Yes (?) Headaches: Yes Hypertension: Yes Insomnia: Yes Migraines: Yes Shingles: Yes Sleep Apnea: Yes (NO CPAP USE) Thyroid Disease: Yes (HYPOTHYROIDISM) Triglycerides - High: Yes ?: Not Menopausal: Yes : 3 Para: 3 Tubal Ligation: Yes Past Surgical History Abdominal Surgery: Yes (hysterectomy) Gynecologic Surgery: Yes (BILATERAL OOPHORECTOMY/ right side mastectomy) Hysterectomy: Yes Mastectomy: Yes (2007 WITH LYMPH NODES) Other Surgery: Yes Social History Alcohol Use: No Tobacco Use: No Substance Use: No Allergies-Medications (Allergen,Severity, Reaction): Coded Allergies: Penicillins (Verified Allergy, Severe, SORES, 04/18/17) Reported Meds & Prescriptions Reported Meds & Active Scripts Active Quetiapine (Quetiapine Fumarate) 25 Mg Tab 50 Mg PO HS Glucophage (Metformin HCl) 850 Mg Tab 850 Mg PO BIDPC Magnesium Oxide 400 Mg Tab 400 Mg PO HS Levemir Inj (Insulin Detemir) 1,000 unit/ 10 ML Vial 45 Units SQ HS Do not mix with any other Insulin. Doxycycline Hyclate 100 Mg Cap 100 Mg PO Q12H Valium (Diazepam) 10 Mg Tab 10 Mg PO TID PRN D 1000 (Cholecalciferol) 1,000 Unit Tab 1,000 Units PO BID Atorvastatin (Atorvastatin Calcium) 80 Mg Tab 80 Mg PO HS Reported Letrozole 2.5 Mg Tab 1 Tab PO DAILY Prozac (Fluoxetine HCl) 40 Mg Cap 60 Mg PO DAILY Lisinopril-Hctz 20-12.5 Mg Tab 1 Tab PO DAILY Lantus Inj (Insulin Glargine) 1,000 Unit/10 Ml Vial 55 Units SQ HS Novolin R Inj (Insulin Human Regular) 1,000 Unit/10 Ml Vial 2-10 Units SQ TIDAC PRN IMPORTANT TO EAT A MEAL WITHIN 30-60 MINUTES OF DOSING Review of Systems Except as stated in HPI: all other systems reviewed are Neg Physical Exam Narrative GENERAL: Well-nourished, well-developed female patient, afebrile. SKIN: Focused skin assessment warm/dry. HEAD: Normocephalic. Atraumatic. EYES: No scleral icterus. No injection or drainage. NECK: Supple, trachea midline. No JVD or lymphadenopathy. CARDIOVASCULAR: Regular rate and rhythm without murmurs, gallops, or rubs. RESPIRATORY: Breath sounds equal bilaterally. No accessory muscle use. Lungs sounds are clear to auscultation. GASTROINTESTINAL: Abdomen soft, non-tender, nondistended. MUSCULOSKELETAL: No cyanosis, or edema. PSYCHIATRIC: No delusional thought processes. No hallucinations. Data Data Last Documented VS Vital Signs Date Time Temp Pulse Resp B/P (MAP) Pulse Ox O2 Delivery O2 Flow Rate FiO2 04/18/17 19:34 80 18 157/82 (107) 98 Room Air 04/18/17 16:57 97.5 Orders Orders Complete Blood Count With Diff (04/18/17 17:14) Comprehensive Metabolic Panel (04/18/17 17:14) Urinalysis - C+S If Indicated (04/18/17 17:14) Psych Screen (04/18/17 17:14) Drug Screen, Random Urine (04/18/17 17:14) Alcohol (Ethanol) (04/18/17 17:14) Urine Culture (04/18/17 17:17) Sodium Chlor 0.9% 1000 Ml Inj (Ns 1000 M (04/18/17 18:45) Insulin Human Regular Inj (Novolin R Inj (04/18/17 18:45) Labs Laboratory Tests Test 04/18/17 17:17 White Blood Count 12.0 TH/MM3 Red Blood Count 5.21 MIL/MM3 Hemoglobin 14.1 GM/DL Hematocrit 43.3 % Mean Corpuscular Volume 83.0 FL Mean Corpuscular Hemoglobin 27.1 PG Mean Corpuscular Hemoglobin Concent 32.7 % Red Cell Distribution Width 13.8 % Platelet Count 433 TH/MM3 Mean Platelet Volume 7.5 FL Neutrophils (%) (Auto) 81.1 % Lymphocytes (%) (Auto) 11.7 % Monocytes (%) (Auto) 5.9 % Eosinophils (%) (Auto) 0.7 % Basophils (%) (Auto) 0.6 % Neutrophils # (Auto) 9.7 TH/MM3 Lymphocytes # (Auto) 1.4 TH/MM3 Monocytes # (Auto) 0.7 TH/MM3 Eosinophils # (Auto) 0.1 TH/MM3 Basophils # (Auto) 0.1 TH/MM3 CBC Comment DIFF FINAL Differential Comment Urine Color LIGHT-YELLOW Urine Turbidity HAZY Urine pH 5.5 Urine Specific [place] 1.026 Urine Protein TRACE mg/dL Urine Glucose (UA) 1000 mg/dL Urine Ketones NEG mg/dL Urine Occult Blood NEG Urine Nitrite NEG Urine Bilirubin NEG Urine Urobilinogen LESS THAN 2.0 MG/DL Urine Leukocyte Esterase MOD Urine RBC 3 /hpf Urine WBC 21 /hpf Urine Squamous Epithelial Cells 1 /hpf Urine Bacteria FEW /hpf Microscopic Urinalysis Comment CULTURE INDICATED Blood Urea Nitrogen 19 MG/DL Creatinine 1.56 MG/DL Random Glucose 560 MG/DL Total Protein 8.4 GM/DL Albumin 3.6 GM/DL Calcium Level 9.5 MG/DL Alkaline Phosphatase 187 U/L Aspartate Amino Transf (AST/SGOT) 10 U/L Alanine Aminotransferase (ALT/SGPT) 19 U/L Total Bilirubin 0.3 MG/DL Sodium Level 130 MEQ/L Potassium Level 3.9 MEQ/L Chloride Level 91 MEQ/L Carbon Dioxide Level 30.5 MEQ/L Anion Gap 9 MEQ/L Estimat Glomerular Filtration Rate 34 ML/MIN Urine Opiates Screen NEG Urine Barbiturates Screen NEG Urine Amphetamines Screen NEG Urine Benzodiazepines Screen POS Urine Cocaine Screen NEG Urine Cannabinoids Screen NEG Ethyl Alcohol Level LESS THAN 3 MG/DL MDM Medical Decision Making Medical Screen Exam Complete: Yes Emergency Medical Condition: Yes Medical Record Reviewed: Yes Differential Diagnosis Anxiety versus depression versus UTI Narrative Course 61-year-old female presents to the emergency Department under Myles act by local police. She reports feeling sad and depressed, but denies any suicidal ideation. CBC, CMP, UA, alcohol level, urine drug screen are ordered and pending. CBC shows leukocytosis 12.0. CMP shows hyponatremia 130, BUN 19, creatinine 1.56, glucose 560. UA shows moderate leukocyte esterase, 21 WBC.. Alcohol level is less than 3. UDS is positive for benzodiazepines. Blood glucose at 2014 is down to 338. Patient is given Macrobid for UTI. Patient is medically cleared for psychiatric screening and disposition. Patient will need a prescription for Macrobid upon discharge for UTI. Diagnosis Primary Impression: Depression Qualified Codes: F32.9 - Major depressive disorder, single episode, unspecified Additional Impressions: Hyperglycemia Urinary tract infection Qualified Codes: N30.00 - Acute cystitis without hematuria Condition: Stable Tracee Draper Apr 18, 2017 17:21
[2017-04-18 17:31] LABS: AUTOMATED NEUTROPHIL # 9.7 TH/MM3 (1.8-7.7); BASOPHIL # 0.1 TH/MM3 (0-0.2); BASOPHIL % 0.6 % (0.0-2.0); EOSINOPHIL # 0.1 TH/MM3 (0-0.4); EOSINOPHIL % 0.7 % (0.0-4.0); HEMATOCRIT 43.3 % (35.0-46.0); HEMOGLOBIN 14.1 GM/DL (11.6-15.3); LYMPH % 11.7 % (9.0-44.0); LYMPHOCYTE # 1.4 TH/MM3 (1.0-4.8); MEAN CORPUSCULAR HEMOGLOBIN 27.1 PG (27.0-34.0); MEAN CORPUSCULAR HGB CONC 32.7 % (32.0-36.0); MEAN PLATELET VOLUME 7.5 FL (7.0-11.0); MONO % 5.9 % (0.0-8.0); MONOCYTE # 0.7 TH/MM3 (0-0.9); NEUT % 81.1 % (16.0-70.0); PLATELET COUNT 433 TH/MM3 (150-450); RED BLOOD COUNT 5.21 MIL/MM3 (4.00-5.30); RED CELL DISTRIBUTION WIDTH 13.8 % (11.6-17.2)
[2017-04-18 17:47] LABS: BACTERIA, URINE FEW /hpf; BILIRUBIN, URINE NEG (NEG); BLOOD, URINE NEG (NEG); GLUCOSE,URINE 1000 mg/dL (NEG); KETONE, URINE NEG (NEG); NITRITE,URINE NEG (NEG); PH, URINE 5.5 (5.0-8.5); SQUAMOUS EPITHELIAL CELL URINE 1 /hpf (0-5); URINE COLOR LIGHT-YELLOW (YELLW/STRAW); URINE LEUKOCYTE ESTERASE MOD (NEG)
[2017-04-18 18:00] LABS: ALBUMIN 3.6 GM/DL (3.4-5.0); ALT (GPT) 19 U/L (10-53); AST (GOT) 10 U/L (15-37); BICARBONATE 30.5 MEQ/L (21.0-32.0); BLOOD UREA NITROGEN 19 MG/DL (7-18); CALCIUM 9.5 MG/DL (8.5-10.1); CHLORIDE 91 MEQ/L (98-107); CREATININE 1.56 MG/DL (0.50-1.00); GLOMERULAR FILTRATION RATE 34 ML/MIN (>89); SODIUM (NA) 130 MEQ/L (136-145)
[2017-04-18 18:26] LABS: ALKALINE PHOSPHATASE 187 U/L (45-117); TOTAL BILIRUBIN ADULT 0.3 MG/DL (0.2-1.0); TOTAL PROTEIN 8.4 GM/DL (6.4-8.2)
[2017-04-18 18:38] LABS: GLUCOSE,RANDOM 560 MG/DL (74-106)
[2017-04-18] MEDS ORDERED: SODIUM CHLOR 0.9% 1000 ML INJ 1,000 ML IV ONE (18:45)
[2017-04-18] MEDS ORDERED: INSULIN HUMAN REGULAR 1,000 UNITS/10 ML VIAL IV PUSH ONE (18:45)
[2017-04-18 19:34] VITALS: BP 157/82; PULSE 80; RESP 18; O2SAT 98
[2017-04-18] MEDS ORDERED: NITROFURANTOIN MONOHYD MACROCR 100 MG CAP PO ONE (21:15)
[2017-04-18 22:54] VITALS: BP 151/82; PULSE 75; RESP 18; O2SAT 99
[2017-04-19] MEDS ORDERED: QUEtiapine FUMARATE 25 MG TAB PO ONE (02:00)
[2017-04-19 07:39] VITALS: BP 177/86; PULSE 89; RESP 18; O2SAT 99
[2017-04-19] MEDS ORDERED: LORazepam 1 MG TAB PO PRN (14:00)
[2017-04-19] MEDS ORDERED: LORazepam 2 MG/ML VIAL IM PRN (14:00)
[2017-04-19] MEDS ORDERED: ALUMINUM/MAGNESIUM/SIMETH 30 ML CUP PO PRN (14:00)
[2017-04-19] MEDS: DOXYCYCLINE HYCLATE 100 MG CAP PO SCH (14:00)
[2017-04-19] MEDS ORDERED: diphenhydrAMINE HCL 50 MG CAP PO PRN (14:00)
[2017-04-19] MEDS ORDERED: MAGNESIUM HYDROXIDE SUSP 30 ML CUP PO PRN (14:00)
[2017-04-19] MEDS ORDERED: diphenhydrAMINE HCL 50 MG/ML VIAL IM PRN (14:00)
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
[2017-04-19 15:32] VITALS: BP 158/85; PULSE 96; RESP 20; TEMP 98; O2SAT 100
[2017-04-19] MEDS ORDERED: INSULIN HUMAN REGULAR 1,000 UNITS/10 ML VIAL SQ ONE (17:45)
[2017-04-19] MEDS ORDERED: cloNIDine HCL 0.1 MG TAB PO PRN (17:45)
[2017-04-19] MEDS ORDERED: metFORMIN HCL 850 MG TAB PO SCH (18:00)
[2017-04-19] MEDS: QUEtiapine FUMARATE 25 MG TAB PO SCH ×2 (21:00→21:34)
[2017-04-19] MEDS ORDERED: INSULIN GLARGINE 1,000 UNITS/10 ML VIAL SQ SCH (21:00)
[2017-04-19] MEDS: CHOLECALCIFEROL (VIT D3) 1000 UNIT TAB PO SCH (21:32)
[2017-04-19] MEDS: ATORVASTATIN 80 MG TAB PO SCH (21:33)
[2017-04-19] MEDS: MAGNESIUM OXIDE 400 MG TAB PO SCH ×2 (21:33→23:44)
[2017-04-19] MEDS: INSULIN ASPART SUPPLEMENTAL SCALE SQ SCH (21:35)
[2017-04-19] MEDS: INSULIN DETEMIR 100 UNITS/ML VIAL SQ SCH (21:36)
[2017-04-20] MEDS: DOXYCYCLINE HYCLATE 100 MG CAP PO SCH ×2 (02:00→14:30)
[2017-04-20 05:52] VITALS: BP 96/60; PULSE 105; RESP 18; TEMP 97.6; O2SAT 97
[2017-04-20] MEDS: INSULIN ASPART SUPPLEMENTAL SCALE SQ SCH ×4 (07:39→20:50)
[2017-04-20] MEDS: CHOLECALCIFEROL (VIT D3) 1000 UNIT TAB PO SCH ×2 (08:23→20:53)
[2017-04-20] MEDS ORDERED: HYDROCHLOROTHIAZIDE 25 MG TAB PO SCH (09:00)
[2017-04-20] MEDS ORDERED: NON-FORMULARY DRUG (Lisinopril-Hctz 1 TAB) PO SCH (09:00)
[2017-04-20] MEDS ORDERED: LETROZOLE 2.5 MG PO SCH (09:00)
[2017-04-20] MEDS ORDERED: LISINOPRIL 20 MG TAB PO SCH (09:00)
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
[2017-04-20 11:36] LABS: AUTOMATED NEUTROPHIL # 11.3 TH/MM3 (1.8-7.7); BASOPHIL % 0.4 % (0.0-2.0); EOSINOPHIL # 0.1 TH/MM3 (0-0.4); EOSINOPHIL % 0.8 % (0.0-4.0); HEMATOCRIT 40.1 % (35.0-46.0); HEMOGLOBIN 13.3 GM/DL (11.6-15.3); LYMPH % 8.4 % (9.0-44.0); LYMPHOCYTE # 1.1 TH/MM3 (1.0-4.8); MEAN CELL VOLUME 82.5 FL (80.0-100.0); MEAN CORPUSCULAR HEMOGLOBIN 27.3 PG (27.0-34.0); MEAN CORPUSCULAR HGB CONC 33.1 % (32.0-36.0); MEAN PLATELET VOLUME 7.7 FL (7.0-11.0); MONO % 4.1 % (0.0-8.0); MONOCYTE # 0.5 TH/MM3 (0-0.9); NEUT % 86.3 % (16.0-70.0); PLATELET COUNT 363 TH/MM3 (150-450); RED BLOOD COUNT 4.87 MIL/MM3 (4.00-5.30); RED CELL DISTRIBUTION WIDTH 14.1 % (11.6-17.2); WHITE BLOOD COUNT 13.1 TH/MM3 (4.0-11.0)
[2017-04-20 12:10] LABS: ALBUMIN 3.3 GM/DL (3.4-5.0); AST (GOT) 12 U/L (15-37); BICARBONATE 29.4 MEQ/L (21.0-32.0); BLOOD UREA NITROGEN 16 MG/DL (7-18); CALCIUM 9.3 MG/DL (8.5-10.1); CHLORIDE 100 MEQ/L (98-107); CHOLESTEROL 298 MG/DL (120-200); CREATININE 1.36 MG/DL (0.50-1.00); GLOMERULAR FILTRATION RATE 39 ML/MIN (>89); GLUCOSE,RANDOM 227 MG/DL (74-106); SODIUM (NA) 137 MEQ/L (136-145)
[2017-04-20 12:29] LABS: ALKALINE PHOSPHATASE 144 U/L (45-117); ALT (GPT) 19 U/L (10-53); CHOLESTEROL/ HDL RATIO 9.31 RATIO; LDL CHOLESTEROL 225 MG/DL (0-99); TOTAL BILIRUBIN ADULT 0.4 MG/DL (0.2-1.0); TOTAL PROTEIN 7.5 GM/DL (6.4-8.2); TRIGLYCERIDES 207 MG/DL (42-150)
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
[2017-04-20] MEDS: LURASIDONE 40 MG TAB PO SCH (14:30)
--- NOTE | 2017-04-20 14:59 | EKG ---
Date Performed: 04/20/2017 Time Performed: 08:40:27 PTAGE: 61 years EKG: SINUS TACHYCARDIA NONSPECIFIC ST & T-WAVE ABNORMALITY Since previous tracing, no significan t change noted ABNORMAL ECG PREVIOUS TRACING : 11/27/2016 09.13 DOCTOR: Leonidas Paz Interpretating Date/Time 04/20/2017 14:57:29
[2017-04-20] MEDS: DIAZEPAM 10 MG TAB PO PRN ×2 (15:35→22:35)
[2017-04-20] MEDS: NITROFURANTOIN MONOHYD MACROCR 100 MG CAP PO SCH ×2 (17:06→17:17)
[2017-04-20] MEDS: INSULIN DETEMIR 100 UNITS/ML VIAL SQ SCH (20:50)
[2017-04-20] MEDS: MAGNESIUM OXIDE 400 MG TAB PO SCH (20:52)
[2017-04-20] MEDS: QUEtiapine FUMARATE 25 MG TAB PO SCH (20:53)
[2017-04-20] MEDS: ATORVASTATIN 80 MG TAB PO SCH (20:53)
[2017-04-21 05:26] VITALS: BP 128/73; PULSE 102; RESP 16; TEMP 97.5; O2SAT 97
[2017-04-21] MEDS: INSULIN ASPART SUPPLEMENTAL SCALE SQ SCH ×4 (08:00→21:00)
[2017-04-21 08:48] VITALS: BP 128/73; PULSE 102; RESP 16; TEMP 97.5; O2SAT 97
[2017-04-21] MEDS: LURASIDONE 40 MG TAB PO SCH (09:21)
[2017-04-21] MEDS: NITROFURANTOIN MONOHYD MACROCR 100 MG CAP PO SCH ×2 (09:21→18:10)
[2017-04-21] MEDS: CHOLECALCIFEROL (VIT D3) 1000 UNIT TAB PO SCH ×2 (09:21→20:46)
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
[2017-04-21] MEDS ORDERED: PILL SPLITTER OTHER PRN (14:45)
[2017-04-21 15:54] LABS: BICARBONATE 31.9 MEQ/L (21.0-32.0); CALCIUM 9.6 MG/DL (8.5-10.1); CREATININE 1.51 MG/DL (0.50-1.00)
[2017-04-21 17:52] VITALS: BP 165/81; PULSE 98; RESP 18; TEMP 97.7; O2SAT 97
[2017-04-21] MEDS: MAGNESIUM OXIDE 400 MG TAB PO SCH (20:46)
[2017-04-21] MEDS: ATORVASTATIN 80 MG TAB PO SCH (20:46)
[2017-04-21] MEDS: QUEtiapine FUMARATE 25 MG TAB PO SCH (20:46)
[2017-04-21] MEDS: INSULIN DETEMIR 100 UNITS/ML VIAL SQ SCH (20:51)
[2017-04-21] MEDS: ACETAMINOPHEN 325 MG TAB PO PRN (21:52)
[2017-04-22 06:52] VITALS: BP 138/73; PULSE 88; RESP 18; TEMP 97.8; O2SAT 97
[2017-04-22] MEDS: INSULIN ASPART SUPPLEMENTAL SCALE SQ SCH ×4 (08:00→20:14)
[2017-04-22] MEDS: NITROFURANTOIN MONOHYD MACROCR 100 MG CAP PO SCH ×2 (09:10→19:08)
[2017-04-22] MEDS: CHOLECALCIFEROL (VIT D3) 1000 UNIT TAB PO SCH ×2 (09:11→20:15)
[2017-04-22] MEDS: LURASIDONE 40 MG TAB PO SCH (09:11)
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
[2017-04-22 18:00] VITALS: BP 133/74; PULSE 113; RESP 18; TEMP 98.1; O2SAT 98
[2017-04-22] MEDS: INSULIN DETEMIR 100 UNITS/ML VIAL SQ SCH (20:14)
[2017-04-22] MEDS: ATORVASTATIN 80 MG TAB PO SCH (20:15)
[2017-04-22] MEDS: MAGNESIUM OXIDE 400 MG TAB PO SCH (20:15)
[2017-04-22] MEDS: ACETAMINOPHEN 325 MG TAB PO PRN (20:16)
[2017-04-22] MEDS: DIAZEPAM 10 MG TAB PO PRN (20:17)
[2017-04-22] MEDS ORDERED: QUEtiapine FUMARATE 100 MG TAB PO SCH (21:00)
[2017-04-23 05:07] VITALS: BP 128/60; PULSE 90; RESP 16; TEMP 97.7; O2SAT 96
[2017-04-23] MEDS: INSULIN ASPART SUPPLEMENTAL SCALE SQ SCH ×2 (08:00→11:49)
[2017-04-23] MEDS: CHOLECALCIFEROL (VIT D3) 1000 UNIT TAB PO SCH (08:57)
[2017-04-23] MEDS: NITROFURANTOIN MONOHYD MACROCR 100 MG CAP PO SCH (08:57)
[2017-04-23] MEDS: LURASIDONE 40 MG TAB PO SCH (08:57)
[2017-04-23] MEDS ORDERED: ATOR80TA45 PO (12:03)
[2017-04-23] MEDS ORDERED: NITR100C4 PO (12:03)
[2017-04-23] MEDS ORDERED: LEVEMIR SQ (12:03)
[2017-04-23] MEDS ORDERED: LURA1TAB2 PO (12:03)
[2017-04-23] MEDS ORDERED: QUET1TAB8 PO (12:03)
[2017-04-23] MEDS ORDERED: NOVORP2 SQ (12:40)
[2017-04-23] MEDS ORDERED: LANTUS2P SQ (12:40)
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
== END 2017-04-23 13:00 | disposition home or self-care (01) | DRG 885 ==
LOC: NEDAMB 16:37 → NEDA 04-19 13:49 → H260 04-19 15:20
PROVIDERS: ADMIT Student in an Organized Health Care Education/Training Program; ATTEND Student in an Organized Health Care Education/Training Program
DX: F23 Brief psychotic disorder (principal); N17.9 Acute kidney failure, unspecified; E87.1 Hypo-osmolality and hyponatremia; R45.851 Suicidal ideations; N30.00 Acute cystitis without hematuria; E11.22 Type 2 diabetes mellitus with diabetic chronic kidney disease; E11.65 Type 2 diabetes mellitus with hyperglycemia; E03.9 Hypothyroidism, unspecified; K21.9 Gastro-esophageal reflux disease without esophagitis; F41.9 Anxiety disorder, unspecified; G47.33 Obstructive sleep apnea (adult) (pediatric); N18.9 Chronic kidney disease, unspecified; E55.9 Vitamin D deficiency, unspecified; I12.9 Hypertensive chronic kidney disease with stage 1 through stage 4 chronic kidney disease, or unspecified chronic kidney disease; B96.20 Unspecified Escherichia coli [E. coli] as the cause of diseases classified elsewhere; E78.5 Hyperlipidemia, unspecified; F31.9 Bipolar disorder, unspecified; Z91.14 Patient's other noncompliance with medication regimen; Z92.21 Personal history of antineoplastic chemotherapy; Z85.3 Personal history of malignant neoplasm of breast; Z79.4 Long term (current) use of insulin
CPT/HCPCS: 80048; 80053; 80061; 80307; 81001; 82306; 82607; 82948; 83036; 84443; 85025; 87077; 87086; 87186; 93005; 96361; 96374; J1200; J1815; J2060; J7030; Q0163